=== PATIENT | male | born 1995 | race Two or more races ===

== ENCOUNTER 2024-12-14 22:39 | Emergency (ER) | payer MEDICAID, SELFPAY ==
[2024-12-14 22:41] VITALS: BMI 29.2
[2024-12-14 22:42] VITALS: BP 140/67; PULSE 135; RESP 19; TEMP 37.6; O2SAT 96
--- NOTE | 2024-12-14 22:56 | PD.EDTRAUM ---
ED Trauma RME/HPI General Chief Complaint: Trauma Stated Complaint: TRAUMA Time Seen by Provider: 12/14/24 22:56 Arrival date/time: 12/14/24 22:39 RME / HPI RME / HPI narrative: DR. BOLAÑOS MAIN ED EVALUATION: Patient presents by EMS after reportedly falling 10 feet off a balcony landing on his back and occiput, no LOC, fall was unwitnessed, patient assumed upright position after fall and reports neck pain. No UE radiculopathy, nausea, vomiting, headache, chest, or abdominal pain. PMH: Unremarkable PSH: Non-contributory Allergies: None Social: Ocassional alcohol, no tobacco or illicit drug abuse Related Data Previous Rx's ?Medication ?Instructions ?Recorded cyclobenzaprine 5 mg tablet 5 mg PO TID PRN muscle spasm #21 12/15/24 tabs ibuprofen 200 mg capsule (Motrin 600 mg (3 x 200 mg) PO Q8H PRN 12/15/24 IB) pain #30 caps Allergies Allergy/AdvReac Type Severity Reaction Status Date / Time No Known Allergies Allergy Unknown Uncoded 04/01/09 01:17 Review of Systems Review of Systems Systems Reviewed: All systems reviewed, normal except as documented Past Medical History Social History SMOKING STATUS: Current some day smoker ALCOHOL: Current ED Exam Narrative Physical exam: GEN. APPEARANCE: The patient is alert awake oriented X-3 under no distress, lying down comfortably, does not look ill/toxic. Patient has good eye contact. Patient is cooperative. GCS 15, full recall of incident. VITALS: All vitals were reviewed and the pulse ox is 99%, which is normal according to my interpretation HEENT: Normocephalic, atraumatic, mild tenderness of posterior occiput. Pupils are equal and reactive. Oral mucosa is moist. NECK: Supple, nontender, no meningismus, no JVD. There is no thyromegaly and no lymphadenopathy. CHEST: Nontender on palpation no deformity and no crepitus. CARDIOVASCULAR: Heart regular rhythm, no murmur or gallop rub or extra beats. LUNGS: Clear to auscultation bilaterally with symmetrical chest rise. No laboring tachypnea or wheezing. No intercostal subcostal retraction. No rales and no rhonchi. ABDOMEN: Soft, flat, nontender to palpation, no guarding or rebound tenderness. There are no abnormal masses palpated. No pulsatile masses or bruits. Active and normal bowel sounds. EXTREMITIES: Normal inspection and palpation. No edema. No cyanosis. Patient is able to move all 4 extremities well SKIN: Warm and dry, no rashes noted. MUSCULOSKELETAL: Mild midline tenderness tenderness to mid-cervical segment and lower thoracic segment. There is no CVA tenderness. No paraspinal muscle spasm or tenderness. NEURO: Cranial nerves II through XII grossly intact. There are no focal neurologic deficits noted. GCS is 15 PSYCHIATRIC: Patient is in normal mood and affect, cooperative. LYMPHATICS: No major lymphadenopathy noted. Course Quality Measures none Orders Category Date Time Status Bedside Blood Glucose NOW Care 12/14/24 22:59 Completed Amortization Schedule Clerk NOW Care 12/14/24 23:00 Completed Continuous Pulse Oximetry NOW Care 12/14/24 22:59 Completed Insert IV NOW Care 12/14/24 23:00 Completed NPO NOW Care 12/14/24 22:[address] cervical spine wo con Stat Exams 12/14/24 22:[address] head/brain wo con Stat Exams 12/14/24 22:[address] lumbar spine wo con Stat Exams 12/14/24 22:[address] thoracic spine wo con Stat Exams 12/14/24 22:59 Completed XR chest 1V Stat Exams 12/14/24 23:03 Completed Alcohol, Blood Medical Stat Lab 12/14/24 23:05 Completed Amylase Stat Lab 12/14/24 23:05 Completed CBC Stat Lab 12/14/24 23:05 Completed Comprehensive Metabolic Panel Stat Lab 12/14/24 23:05 Completed Lactate (Lactic Acid) Stat Lab 12/14/24 23:05 Completed Sodium Chloride 0.9% 500 ml [Ns] 500 ml Med 12/14/24 22:59 Discontinued IV 999 mls/hr Sodium Chloride 0.9% 500 ml [Ns] 500 ml Med 12/15/24 00:40 Discontinued IV 999 mls/hr Vital Signs Vital signs: Vital Signs Temperature 99.7 F 12/14/24 22:42 Pulse Rate 135 H 12/14/24 22:42 Respiratory Rate 19 12/14/24 22:42 Blood Pressure 140/67 H 12/14/24 22:42 Pulse Oximetry (%) 96 12/14/24 22:42 Oxygen Delivery Method Room Air 12/14/24 22:42 Trauma MDM Narrative MDM Narrative:: Scribe Attestation: I, [place]lamont Vale, am scribing for and in the presence of Dr. Bolaños. Provider Notation: Although this document has been carefully reviewed, there may still be some phonetic and other typographical errors. These errors are purely grammatical due to imperfections in the software program and should not be construed in any way to compromise the substance of the patient's medical care during this visit. Patient presents by EMS after reportedly falling 10 feet off a balcony landing on his back and occiput, no LOC, fall was unwitnessed, patient assumed upright position after fall and reports neck pain. No UE radiculopathy, nausea, vomiting, headache, chest, or abdominal pain. Please see PE findings. Patient placed on founder and chief technical officer and maintained in C-spine precaution. Patient underwent fast-scan which was negative for hemoperitoneum. STAT portable CRX without evidence of hemopneumothorax. IV established and patient hydrated with saline with gradual reduction in heart rate. Ethanol elevated at 0.25. After crystalloid administration, heart rate normalized. Patient underwent CT of the brain and entire spine which was without evidence of fracture or subluxation. Patient remained neurologically intact throughout ED course and refused Tdap, acknowledging risks, inclusive of . At time of discharge, patient was cleared for both transport and incarceration and was discharged in custody of [facility]. Final diagnoses include fall from great height, thoracic contusion, and cervical sprain. Patient data External records reviewed:: [facility] previous records (Reviewed prior ED records from 05/02/21. Patient was seen for Acute facial pain.) and EMS form Clinical information provided by:: patient and EMS Social determinants that could affect healthcare access:: alcohol use Patient has the following chronic illnesses:: None reported How is presenting disease/condition affected by chronic disease/condition?: no chronic disease Evaluation data The following diagnostics were reviewed and interpreted by me:: lab results and radiology exam(s) Lab and/or radiology exams considered but not ordered:: None Interpretation Summary: RADIOLOGY Chest X-Ray: FINDINGS: Normal heart size No pneumothorax Clavicles ribs appear intact IMPRESSION: No pneumothorax pulmonary contusion or hemothorax T-Spine CT: Findings: Adequate alignment thoracic vertebral bodies No thoracic vertebral body compression fracture Thoracic pedicles, laminae, transverse and posterior spinous processes intact No focal thoracic disc protrusion IMPRESSION: No acute thoracic fracture L-Spine CT: Findings: Satisfactory alignment lumbar vertebral bodies No lumbar vertebral body compression fractures No spondylolisthesis Lumbar pedicles, laminae, transverse and posterior spinous processes intact No focal lumbar disc protrusion IMPRESSION: No acute lumbar fracture Head/Brain CT: Findings: No significant ventricular enlargement. Intra-axial or extra-axial hemorrhage density is not seen. No mass effect or midline shift Basal cisterns are not remarkable. Fourth ventricle is midline. Cranial vault intact. Impression: Negative for acute hemorrhage, mass effect or midline shift C-Spine CT: Findings: Axial sections demonstrate intact base of the skull. C1 exhibit satisfactory relationship to the odontoid. No acute cervical vertebral body fracture seen. Alignment posterior spinous processes satisfactory. Impression: No acute cervical fracture. Medications / Prescriptions Medications or Prescriptions considered but not ordered:: None Medication administrations:: Medication Administration History Discontinued Medications Sodium Chloride (Ns) 500 mls @ 999 mls/hr IV .Q31M ONE Stop: 12/14/24 23:29 Last Infusion: 12/14/24 23:48 Dose: Infused Documented By: Admin: 12/14/24 23:17 Dose: 999 mls/hr Documented By: DT Sodium Chloride (Ns) 500 mls @ 999 mls/hr IV .Q31M ONE Stop: 12/15/24 01:10 Last Infusion: 12/15/24 01:20 Dose: Infused Documented By: Admin: 12/15/24 00:49 Dose: 999 mls/hr Documented By: DT See above if any Consultations Consultation(s) initiated? (list below): No Diagnosis Trauma Differential Diagnosis: splenic injury, splenic rupture, contusion of kidney, laceration of liver, laceration of spleen, fracture of pelvis and other (Cervical spine fracture, Lumbar spine fracture, Thoracic spine fracture, Contusions) Most likely diagnosis given after review of the tests above:: Contusion, multiple sites, Cervical sprain, Alcohol intoxication Admission Indicated Admission indicated?: not indicated Explain why admission is indicated or not indicated:: Patient does not meet admission criteria Admission Request Was there a request for admission?: No Disposition Plan Disposition Plan: Discharge Discharge Attestation Discharge Attestation: The patient and all family members were given an opportunity to ask questions and understood the discharge instructions. Discharge instructions specifically effects, indications for sooner follow up or return to the emergency department, and the expected course of current diagnosis. Patient condition: Stable Discharge Plan Plan Patient Disposition: [facility]/Court/Law Discharge Disposition comment: stable Prescriptions/Referrals Prescriptions/Med Rec: New ibuprofen [Motrin IB] 200 mg capsule 600 mg PO Q8H PRN (Reason: pain) Qty: 30 0RF Rx Instructions: with food cyclobenzaprine 5 mg tablet 5 mg PO TID PRN (Reason: muscle spasm) Qty: 21 0RF Referrals: No Primary/Family,Physician [Primary Care Provider] - In 1 week Problem List Clinical Impression: Contusion, multiple sites, Cervical sprain, Alcohol intoxication Impression comment: Cervical sprain/ multiple contusions /alcohol intoxication Patient/Caregiver Discharge Instructions Discharge Activity: activity as tolerated Diet Instructions: regular Education Materials: ED Back Contusion, ED Alcohol Intoxication, ED Neck Sprain or Strain Additional Instructions: Ice compresses to affected area, alternate with heat after 24 hours. Medication as directed. Return if worsening Print Language: Kinyarwanda
[2024-12-14 22:58] VITALS: PULSE 125; RESP 14; O2SAT 99; BMI 29.0
--- NOTE | 2024-12-14 22:59 | XR_ITS ---
Examination: CT lumbar spine, without contrast. 2-D sagittal reconstructions. 2-D coronal reconstructions. 3-D reconstructions. Date and time of exam: December 14, 2024, 11:40 p.m. INDICATIONS: Patient fell out of a second story building today with injury to the lower back, lower back pain CTDI: vol (mGy): 16 DLP: (mGycm):599 Technique: Multiple 1.25 mm axial sections of the lumbar spine without intravenous contrast have been obtained. 2-D sagittal and coronal reconstructions have been obtained. 3-D reconstructions have been obtained. Low dose protocols were performed. One or more of the following dose reduction techniques were used; automated exposure control, adjustment of the mA and/or KV according to patient size, use of iterative reconstruction technique. Findings: Satisfactory alignment lumbar vertebral bodies No lumbar vertebral body compression fractures No spondylolisthesis Lumbar pedicles, laminae, transverse and posterior spinous processes intact No focal lumbar disc protrusion IMPRESSION: No acute lumbar fracture
--- NOTE | 2024-12-14 22:59 | XR_ITS ---
Examination: CT brain head without contrast. 2-D sagittal coronal reconstructions Date and time of exam: December 14, 2024, 11:42 p.m. INDICATIONS: Patient fell from a second story building with injury of the head, head pain CTDI: vol (mGy): 51.7 DLP: (mGycm): 1001 Technique: Multiple CT axial sections of the brain have been obtained, 5 mm slice thickness. Contrast has not been administered. 2-D sagittal, coronal reconstructions have been obtained Low dose protocols were performed. One or more of the following dose reduction techniques were used; automated exposure control, adjustment of the mA and/or KV according to patient size, use of iterative reconstruction technique. Findings: No significant ventricular enlargement. Intra-axial or extra-axial hemorrhage density is not seen. No mass effect or midline shift Basal cisterns are not remarkable. Fourth ventricle is midline. Cranial vault intact. Impression: Negative for acute hemorrhage, mass effect or midline shift
--- NOTE | 2024-12-14 22:59 | XR_ITS ---
Examination: CT cervical spine without contrast 2-D sagittal reconstructions 2-D coronal reconstructions 3-D reconstructions. Exam date and time: December 14, 2024 11:40 p.m. INDICATIONS: Patient fell out of bed second-floor building today with injury to the neck, neck pain CTDI:vol (mGy) 14 DLP: (mGycm) 314 Technique: Multiple 2 mm axial sections of the cervical spine have been obtained. The coronal and sagittal reconstructions have been obtained. 3-D reconstructions have been obtained. Low dose protocols were performed. One or more of the following dose reduction techniques were used; automated exposure control, adjustment of the mA and/or KV according to patient size, use of iterative reconstruction technique. Findings: Axial sections demonstrate intact base of the skull. C1 exhibit satisfactory relationship to the odontoid. No acute cervical vertebral body fracture seen. Alignment posterior spinous processes satisfactory. Impression: No acute cervical fracture.
--- NOTE | 2024-12-14 22:59 | XR_ITS ---
Examination: CT thoracic spine, without contrast. 2-D sagittal reconstructions. 2-D coronal reconstructions. 3-D reconstructions. Date and time of exam: December 14, 2024, 11:44 p.m. INDICATIONS: Patient fell out of a second story building today with injury to the mid back, back pain CTDI: vol (mGy): 51.2 DLP: (mGycm): 1916 Technique: Multiple 1.25 mm axial sections of the thoracic spine without intravenous contrast have been obtained. 2-D sagittal and coronal reconstructions have been obtained. 3-D reconstructions have been obtained. Low dose protocols were performed. One or more of the following dose reduction techniques were used; automated exposure control, adjustment of the mA and/or KV according to patient size, use of iterative reconstruction technique. Findings: Adequate alignment thoracic vertebral bodies No thoracic vertebral body compression fracture Thoracic pedicles, laminae, transverse and posterior spinous processes intact No focal thoracic disc protrusion IMPRESSION: No acute thoracic fracture
--- NOTE | 2024-12-14 23:03 | XR_ITS ---
EXAMINATION: AP chest single view TECHNIQUE: AP portable supine chest single view Date and time: December 14, 2024, 1108 hours INDICATIONS: Patient fell from a building today with shortness of breath chest pain FINDINGS: Normal heart size No pneumothorax Clavicles ribs appear intact IMPRESSION: No pneumothorax pulmonary contusion or hemothorax
[2024-12-14 23:10] VITALS: BP 136/86; PULSE 115; RESP 14; TEMP 37; O2SAT 99
[2024-12-14] MEDS: SODIUM CHLORIDE 0.9% 500 ML 500 ML 999 ML IV (23:17)
[2024-12-14 23:32] LABS: Lactate (Lactic Acid) 4.0 mMol/L (0.4-2.0)
[2024-12-14 23:42] LABS: Basophils # (Auto) 0.0 Thou/mm3 (0.0-0.2); Basophils % (Auto) 0 % (0-2.5); Eosinophils # (Auto) 0.0 Thou/mm3 (0.0-0.5); Eosinophils % (Auto) 0 % (0-10); Hematocrit 43.1 % (41.0-53.0); Hemoglobin 14.4 g/dL (13.5-16.0); Immature Granulocytes Auto 0.09 Thou/mm3 (0.00-0.00); Lymphocytes # (Auto) 1.0 Thou/mm3 (1.0-4.8); Lymphocytes % (Auto) 14 % (10-50); Mean Corpuscular HGB Conc 33.4 g/dl (31.0-37.0); Mean Corpuscular Hemoglobin 28.5 pg (25.0-35.0); Mean Corpuscular Volume 85 fL (80-100); Monocytes # (Auto) 0.5 Thou/mm3 (0.0-0.8); Monocytes % (Auto) 7 % (0-12); Neutrophils # (Auto) 6.0 Thou/mm3 (1.8-7.7); Neutrophils % (Auto) 78 % (37-80); Nucleated Red Blood Cell # 0.00 Thou/mm3 (0.00-0.00); Nucleated Red Blood Cell % 0 /100 WBC (0); Platelet Count 298 Thou/mm3 (140-440); RDW Standard Deviation 40.5 fL (35.1-43.9); Red Blood Count 5.05 Miln/mm3 (4.50-5.90); White Blood Count 7.6 Thou/mm3 (3.8-10.6)
[2024-12-15 00:22] LABS: Alanine Aminotransferase 39 U/L (10-49); Albumin, Serum 5.2 gm/dL (3.5-5.0); Albumin/Globulin Ratio 2.1 (1.2-2.2); Alcohol, Blood Medical 242.3 mg/dL (0-10.0); Alkaline Phosphatase 111 U/L (46-116); Amylase 173 U/L (30-118); Anion Gap 14 (7-16); Aspartate Amino Transferase 37 U/L (0-34); BUN/Creatinine Ratio 11 Ratio (12-20); Bilirubin,Total 0.3 mg/dL (0.3-1.2); Blood Urea Nitrogen 10 mg/dL (9-23); Calcium 9.5 mg/dL (8.3-10.6); Calcium (Corrected) 9.5 mg/dL (8.5-10.1); Carbon Dioxide 22.0 mMol/L (20.0-31.0); Chloride 110 mMol/L (98-107); Creatinine (Component) 0.9 mg/dL (0.6-1.3); Estimated Creatinine Clearance 122.6 mL/min (>60); Globulin 2.5 gm/dL (2.3-3.5); Glucose 108 mg/dL (74-106); Osmolality,Calculated 290 (275-295); Potassium 3.5 mMol/L (3.4-5.1); Sodium 146 mMol/L (136-145); Total Protein 7.7 gm/dL (5.7-8.2); eGFR > 60 See Note
[2024-12-15] MEDS: SODIUM CHLORIDE 0.9% 500 ML 500 ML 999 ML IV (00:49)
[2024-12-15 01:30] VITALS: BP 115/85; PULSE 78; RESP 14; TEMP 37; O2SAT 99
[2024-12-15 01:58] VITALS: BP 127/85; PULSE 95; RESP 18; TEMP 37; O2SAT 99
--- NOTE | 2024-12-15 02:05 | PC.NURSE ---
PATIENT REFUSED TETANUS SHOT. PROVIDER BALTAZAR AT BEDSIDE EDUCATING PATIENT ON THE TETANUS SHOT AND THE RISKS ASSOCIATED WITH NOT RECEIVING IT. PER PATIENT I AM GOOD BRO .
[2024-12-15 02:22] LABS: Reflex Lactate? Y
== END 2024-12-15 01:58 ==
PROVIDERS: Emergency Provider Emergency Medicine
DX: S13.4XXA Sprain of ligaments of cervical spine, initial encounter (principal); F10.129 Alcohol abuse with intoxication, unspecified; W17.89XA Other fall from one level to another, initial encounter
CPT/HCPCS: 36415; 70450; 71045; 72125; 72128; 72131; 80053; 80307; 80320; 81001; 82150; 83605; 85025; 96360; 96361; 99284; J7999; G0480